=== PATIENT | male | born 1965 ===

== ENCOUNTER 2019-03-11 06:41 | Day surgery (SDC) | payer BC ==
[~2019-03-11] VITALS: Ht 180.3 cm; Wt 113.9 kg
[2019-03-11] MEDS ORDERED: YONSA125 MG (07:21)
[2019-03-11] MEDS ORDERED: LISI20 (07:22)
[2019-03-11] MEDS ORDERED: CALCIUM CIT 311 EACH (07:23)
[2019-03-11] MEDS ORDERED: Norco 10-325 T1 EACH (07:23)
[2019-03-11] MEDS ORDERED: PRED5 (07:23)
[2019-03-11] MEDS ORDERED: CYCL10 (07:24)
== END 2019-03-11 09:16 | disposition home or self-care (01) ==
LOC: ORSCSDS 06:41
PROVIDERS: Surgery
PROC: 0DBP8ZX Excision of Rectum, Via Natural or Artificial Opening Endoscopic, Diagnostic (ICD-10-PCS; principal; 2019-03-11 08:00)
PROC: 0DBM8ZX Excision of Descending Colon, Via Natural or Artificial Opening Endoscopic, Diagnostic (ICD-10-PCS; principal; 2019-03-11 08:00)
PROC: 3E0H8GC Introduction of Other Therapeutic Substance into Lower GI, Via Natural or Artificial Opening Endoscopic (ICD-10-PCS; principal; 2019-03-11 08:00)
PROC: 0DBL8ZX Excision of Transverse Colon, Via Natural or Artificial Opening Endoscopic, Diagnostic (ICD-10-PCS; principal; 2019-03-11 08:00)
DX: R19.5 Other fecal abnormalities (principal); C18.6 Malignant neoplasm of descending colon; D12.8 Benign neoplasm of rectum; D12.3 Benign neoplasm of transverse colon; I10 Essential (primary) hypertension; F17.210 Nicotine dependence, cigarettes, uncomplicated; J43.9 Emphysema, unspecified; Z79.899 Other long term (current) drug therapy
CPT/HCPCS: 88305; J2405; J2704; J7120

== ENCOUNTER 2019-10-02 08:47 | Day surgery (SDC) | payer BC ==
[~2019-10-02] VITALS: Ht 180.3 cm; Wt 116.3 kg
[~2019-10-02 08:47] MED LIST: CALCIUM CIT 311 EACH; CYCL10; LISI20; Norco 10-325 T1 EACH; PRED5; YONSA125 MG
[2019-10-02] MEDS ORDERED: YONSA125 MG (08:57)
[2019-10-02] MEDS ORDERED: VENL25 (08:59)
[2019-10-02] MEDS ORDERED: XGEVA120 MG/1.1 (09:00)
== END 2019-10-02 10:13 | disposition home or self-care (01) ==
LOC: ORSCSDS 08:47
PROVIDERS: Surgery
PROC: 0DJD8ZZ Inspection of Lower Intestinal Tract, Via Natural or Artificial Opening Endoscopic (ICD-10-PCS; principal; 2019-10-02 09:45)
DX: Z85.038 Personal history of other malignant neoplasm of large intestine (principal); I10 Essential (primary) hypertension; Z85.46 Personal history of malignant neoplasm of prostate; Z79.899 Other long term (current) drug therapy
CPT/HCPCS: J2704; J7120

== ENCOUNTER 2021-10-12 01:27 | Day surgery (SDC) | payer MEDICARE ==
[~2021-10-12 01:27] MED LIST changes: +VENL25; +XGEVA120 MG/1.1
== END 2021-10-12 10:20 | disposition home or self-care (01) ==
LOC: ATC 01:27
DX: Z45.2 Encounter for adjustment and management of vascular access device (principal); C61 Malignant neoplasm of prostate; I10 Essential (primary) hypertension; C79.51 Secondary malignant neoplasm of bone; G43.909 Migraine, unspecified, not intractable, without status migrainosus
CPT/HCPCS: 96523; J1642

== ENCOUNTER 2021-10-19 01:50 | Day surgery (SDC) | payer MEDICARE | END 2021-10-19 11:18 | disposition home or self-care (01) | LOC: ATC 01:50 | DX: Z45.2 Encounter for adjustment and management of vascular access device (principal); C61 Malignant neoplasm of prostate | CPT/HCPCS: 96523; J1642 ==

== ENCOUNTER 2023-04-25 07:38 | Emergency (ER) | payer OTHER ==
[~2023-04-25] VITALS: Ht 177.8 cm; Wt 126.1 kg
[2023-04-25] MEDS ORDERED: Ondansetron HCl 2 MG / ML 2ML Vial IV ONE (08:00)
[2023-04-25] MEDS ORDERED: Morphine Sulfate 4 MG/1 ML Injection IV ONE (08:00)
[2023-04-25 08:39] LABS: BASOPHILS ABSOLUTE AUTO 0.06 K/mm3 (0.00-0.23); BASOPHILS PERCENT AUTO 1 % (0-2); EOSINOPHILS PERCENT AUTO 2 % (0-6); Hematocrit 38.5 % (37.0-53.0); Hemoglobin 13.4 g/dL (13.5-17.5); IMMATURE GRAN ABSOLUTE AUTO 0.09 K/mm3 (0.00-0.10); IMMATURE GRAN PERCENT AUTO 1 % (0-1); LYMPHOCYTES ABSOLUTE AUTO 1.18 K/mm3 (0.84-5.20); LYMPHOCYTES PERCENT AUTO 13 % (21-46); MONOCYTES ABSOLUTE AUTO 0.66 K/mm3 (0.16-1.47); MONOCYTES PERCENT AUTO 7 % (4-13); Mean Corpuscular HGB 29.5 pg (26.0-34.0); Mean Corpuscular HGB Conc 34.8 g/dL (31.5-36.5); Mean Corpuscular Volume 85 fL (80-100); Mean Platelet Volume 9.1 fL (9.1-12.4); NEUTROPHILS ABSOLUTE AUTO 7.02 K/mm3 (1.96-9.15); NEUTROPHILS PERCENT AUTO 76 % (41-73); Platelet Count 297 K/mm3 (150-400); RDW Coefficient Variation 13.2 % (11.7-14.2); RDW Standard Deviation 40.9 fL (35.1-46.3); Red Blood Cell Count 4.54 M/mm3 (4.30-5.90); White Blood Cell Count 9.21 K/mm3 (4.00-11.30)
[2023-04-25 08:56] LABS: Albumin/Globulin Ratio 0.8 (0.8-1.8); Bilirubin, Total 0.5 mg/dL (0.1-1.0); Bun/Creatinine Ratio 11.4 (12.0-20.0); Calcium, Blood 9.4 mg/dL (8.5-10.1); Creatinine, Blood 0.79 mg/dL (0.60-1.20); Globulin, Blood 3.6 g/dL (2.2-4.0); Potassium, Blood 2.8 mmol/L (3.5-5.5); Total Protein, Blood 6.6 g/dL (6.4-8.2)
[2023-04-25 09:17] VITALS: BP 195/103
[2023-04-25] MEDS ORDERED: MORP15ER PO (10:00)
[2023-04-25] MEDS ORDERED: DOC250 PO (10:00)
[2023-04-25] MEDS ORDERED: NARCAN4 M1 (10:00)
[2023-04-25] MEDS ORDERED: POTA10T PO (10:11)
== END 2023-04-25 10:33 | disposition home or self-care (01) ==
LOC: ER 07:38
PROVIDERS: Emergency Medicine
DX: M84.48XA Pathological fracture, other site, initial encounter for fracture (principal); E87.6 Hypokalemia; I10 Essential (primary) hypertension; C61 Malignant neoplasm of prostate; C79.51 Secondary malignant neoplasm of bone; F17.200 Nicotine dependence, unspecified, uncomplicated; Z79.52 Long term (current) use of systemic steroids; Z79.899 Other long term (current) drug therapy; Z88.8 Allergy status to other drugs, medicaments and biological substances; Z91.030 Bee allergy status
CPT/HCPCS: 71260; 80053; 84484; 85025; 93005; 93010; 96374; 96375; 99285-25; J2270; J2405; Q9967

== ENCOUNTER 2023-09-18 13:06 | Emergency (ER) | payer OTHER ==
[~2023-09-18] VITALS: Ht 177.8 cm; Wt 90.7 kg
[~2023-09-18 13:06] MED LIST changes: +DOC250 PO; +MORP15ER PO; +NARCAN4 M1; +POTA10T PO
[2023-09-18 14:19] LABS: BASOPHILS ABSOLUTE AUTO 0.02 K/mm3 (0.00-0.23); BASOPHILS PERCENT AUTO 1 % (0-2); EOSINOPHILS ABSOLUTE AUTO 0.01 K/mm3 (0.00-0.68); EOSINOPHILS PERCENT AUTO 0 % (0-6); Hematocrit 28.6 % (37.0-53.0); Hemoglobin 9.3 g/dL (13.5-17.5); IMMATURE GRAN ABSOLUTE AUTO 0.19 K/mm3 (0.00-0.10); IMMATURE GRAN PERCENT AUTO 5 % (0-1); LYMPHOCYTES ABSOLUTE AUTO 0.39 K/mm3 (0.84-5.20); LYMPHOCYTES PERCENT AUTO 9 % (21-46); MONOCYTES ABSOLUTE AUTO 0.25 K/mm3 (0.16-1.47); MONOCYTES PERCENT AUTO 6 % (4-13); Mean Corpuscular HGB 30.3 pg (26.0-34.0); Mean Corpuscular HGB Conc 32.5 g/dL (31.5-36.5); Mean Corpuscular Volume 93 fL (80-100); Mean Platelet Volume 9.8 fL (9.1-12.4); NEUTROPHILS ABSOLUTE AUTO 3.27 K/mm3 (1.96-9.15); NEUTROPHILS PERCENT AUTO 79 % (41-73); NRBC ABSOLUTE 0.09 K/mm3 (0.00-0.02); NRBC Auto 2.2 /100 WBC (0.0-0.2); Platelet Count 164 K/mm3 (150-400); RDW Coefficient Variation 19.2 % (11.7-14.2); RDW Standard Deviation 64.6 fL (35.1-46.3); Red Blood Cell Count 3.07 M/mm3 (4.30-5.90); White Blood Cell Count 4.13 K/mm3 (4.00-11.30)
[2023-09-18 14:37] LABS: Albumin, Blood 2.8 g/dL (3.4-5.0); Albumin/Globulin Ratio 0.7 (0.8-1.8); Bilirubin, Total 0.6 mg/dL (0.1-1.0); Bun/Creatinine Ratio 16.7 (12.0-20.0); Calcium, Blood 9.8 mg/dL (8.5-10.1); Creatinine, Blood 0.66 mg/dL (0.60-1.20); Globulin, Blood 4.1 g/dL (2.2-4.0); Potassium, Blood 2.6 mmol/L (3.5-5.5); Total Protein, Blood 6.9 g/dL (6.4-8.2)
[2023-09-18 16:38] LABS: Source, Urine Clean Catch
[2023-09-18 16:52] LABS: Appearance, Urine Clear (Clear); Bilirubin, Urine Neg (Neg); Blood, Urine 1+ (Neg); Color, Urine Yellow (P-Yellow); Glucose Qualitative, Urine Neg (Neg); Ketones, Urine Neg (Neg); Leukocyte Esterase, Urine Neg (Neg); Nitrite, Urine Neg (Neg); Protein, Urine Neg (Neg); Urobilinogen, Urine NORM (Normal)
[2023-09-18 17:08] LABS: Bacteria Mod /hpf; Squamous Epithelial Cells Rare /hpf (Few); White Blood Cells, Urine 0-2 /hpf (0-5)
[2023-09-18] MEDS ORDERED: Milk 150ML/Molasses 150ML (300ML Total) PR ONE (17:35)
[2023-09-18] MEDS ORDERED: Potassium Chloride 20 MEQ TabCR PO ONE (18:20)
[2023-09-18] MEDS ORDERED: MIRALAX17 GM PO (18:25)
[2023-09-18] MEDS ORDERED: KLOR-CON 1010 ME1 PO (18:25)
[2023-09-18 18:35] VITALS: BP 129/98
== END 2023-09-18 18:37 | disposition home or self-care (01) ==
LOC: ER 13:06
PROVIDERS: Physician Assistant
DX: K59.00 Constipation, unspecified (principal); E87.6 Hypokalemia; I10 Essential (primary) hypertension; F17.200 Nicotine dependence, unspecified, uncomplicated; Z79.52 Long term (current) use of systemic steroids; Z79.899 Other long term (current) drug therapy; Z91.030 Bee allergy status
CPT/HCPCS: 74177; 80053; 81001; 83690; 85025; 87086; 93005; 93010; 99284-25; A9270; Q9967

== ENCOUNTER 2023-11-13 17:46 | Inpatient (IN) | payer OTHER ==
[~2023-11-13] VITALS: Ht 165.1 cm; Wt 73.8 kg
[~2023-11-13 17:46] MED LIST changes: +KLOR-CON 1010 ME1 PO; -LISI20; +LISI20 PO; +MIRALAX17 GM PO; -PRED5; +PRED5 PO; +YONSA125 MG PO
[2023-11-13 18:16] LABS: Source, Urine Straight Cath
[2023-11-13 18:22] LABS: Hemoglobin 6.4 g/dL (13.5-17.5); Mean Corpuscular HGB 33.2 pg (26.0-34.0); Mean Corpuscular HGB Conc 30.5 g/dL (31.5-36.5); Mean Corpuscular Volume 109 fL (80-100); Mean Platelet Volume 10.8 fL (9.1-12.4); NRBC ABSOLUTE 0.51 K/mm3 (0.00-0.02); NRBC Auto 9.4 /100 WBC (0.0-0.2); Platelet Count 60 K/mm3 (150-400); RDW Coefficient Variation 19.3 % (11.7-14.2); RDW Standard Deviation 74.4 fL (35.1-46.3); Red Blood Cell Count 1.93 M/mm3 (4.30-5.90); White Blood Cell Count 5.43 K/mm3 (4.00-11.30)
[2023-11-13 18:24] LABS: Appearance, Urine Cloudy (Clear); Bilirubin, Urine Neg (Neg); Blood, Urine 1+ (Neg); Color, Urine Yellow (P-Yellow); Glucose Qualitative, Urine Neg (Neg); Ketones, Urine Neg (Neg); Leukocyte Esterase, Urine Neg (Neg); Nitrite, Urine Neg (Neg); Protein, Urine 2+ (Neg); Urobilinogen, Urine 2+ (Normal)
[2023-11-13 18:37] LABS: Albumin, Blood 2.6 g/dL (3.4-5.0); Albumin/Globulin Ratio 0.7 (0.8-1.8); Bilirubin, Total 0.8 mg/dL (0.1-1.0); Calcium, Blood 9.4 mg/dL (8.5-10.1); Creatinine, Blood 0.69 mg/dL (0.60-1.20); Globulin, Blood 3.7 g/dL (2.2-4.0); Potassium, Blood 2.7 mmol/L (3.5-5.5); Total Protein, Blood 6.3 g/dL (6.4-8.2)
[2023-11-13 18:39] LABS: Red Blood Cells, Urine 0-2 /hpf (0-2); Squamous Epithelial Cells Rare /hpf (Few); White Blood Cells, Urine 0-2 /hpf (0-5)
[2023-11-13 18:40] LABS: Amorphous Heavy (0-Heavy)
[2023-11-13 18:41] LABS: Other Crystals Many /hpf
[2023-11-13 18:42] LABS: Bacteria Many /hpf; Mucus Light (0-Heavy); Uric Acid Crystals Rare /hpf
[2023-11-13 19:05] LABS: BAND PERCENT MAN 18 % (0-8); BASOPHILS PERCENT MAN 0 % (0-2); EOSINOPHILS PERCENT MAN 0 % (0-6); LYMPHOCYTES ABSOLUTE MAN 0.32 K/mm3 (0.84-5.20); LYMPHOCYTES PERCENT MAN 6 % (21-46); METAMYELOCYTE ABSOLUTE MAN 0.05 K/mm3 (0.00-0.00); METAMYELOCYTE PERCENT MAN 1 % (0-0); MONOCYTES ABSOLUTE MAN 0.32 K/mm3 (0.16-1.47); MONOCYTES PERCENT MAN 6 % (4-13); MYELOCYTE ABSOLUTE MAN 0.16 K/mm3 (0.00-0.00); MYELOCYTE PERCENT MAN 3 % (0-0); NEUTROPHILS ABSOLUTE MAN 4.56 K/mm3 (1.96-9.15); SEG NEUTROPHILS PERCENT MAN 66 % (41-73); TOTAL CELLS COUNTED 100
[2023-11-13] MEDS ORDERED: NS KCL 40 mEq 1,000 ML IV SCH (21:00)
[2023-11-13] MEDS ORDERED: CefTRIAXone Sodium 1,000 MG in NS 100 ML IV ONE (21:00)
[2023-11-13] MEDS ORDERED: Potassium Chloride 20 MEQ/15 ML UDC PO ONE (21:00)
[2023-11-13] MEDS ORDERED: Pantoprazole Sodium 40 MG Injection IV ONE (21:25)
[2023-11-13] MEDS ORDERED: CefTRIAXone 1000 MG Vial ONE (22:17)
[2023-11-13] MEDS ORDERED: NS 100 ML IV ONE (22:17)
[2023-11-13] MEDS ORDERED: NS 1,000 ML IV ONE (22:44)
[2023-11-14 01:05] LABS: Base Excess Venous 7.8 mmol/L; Bicarbonate Venous 30.9 mmol/L (24.0-30.0); PCO2 Venous 54 mmHg (38-42); pH Blood Venous 7.39 (7.34-7.37)
[2023-11-14] MEDS ORDERED: Acetaminophen 325 MG TABLET PO PRN (07:25)
[2023-11-14] MEDS ORDERED: Potassium Chloride 40 MEQ in NS 250 ML IV ONE (07:30)
[2023-11-14] MEDS ORDERED: OxyCODONE HCL 5 MG TAB PO PRN (07:30)
[2023-11-14] MEDS ORDERED: Morphine Sulfate 4 MG/1 ML Injection IV PRN (07:30)
[2023-11-14] MEDS ORDERED: NS 1,000 ML IV ONE (07:30)
[2023-11-14 08:10] LABS: Albumin, Blood 2.1 g/dL (3.4-5.0); Albumin/Globulin Ratio 0.7 (0.8-1.8); Bilirubin, Total 0.7 mg/dL (0.1-1.0); Bun/Creatinine Ratio 26.8 (12.0-20.0); Calcium, Blood 8.4 mg/dL (8.5-10.1); Creatinine, Blood 0.71 mg/dL (0.60-1.20); Potassium, Blood 3.4 mmol/L (3.5-5.5); Total Protein, Blood 5.1 g/dL (6.4-8.2)
[2023-11-14 08:11] LABS: Hematocrit 22.9 % (37.0-53.0); Hemoglobin 7.4 g/dL (13.5-17.5); Mean Corpuscular HGB 32.5 pg (26.0-34.0); Mean Corpuscular HGB Conc 32.3 g/dL (31.5-36.5); Mean Corpuscular Volume 100 fL (80-100); Mean Platelet Volume 10.2 fL (9.1-12.4); NRBC ABSOLUTE 0.35 K/mm3 (0.00-0.02); NRBC Auto 9.2 /100 WBC (0.0-0.2); RDW Coefficient Variation 21.8 % (11.7-14.2); RDW Standard Deviation 76.4 fL (35.1-46.3); Red Blood Cell Count 2.28 M/mm3 (4.30-5.90)
[2023-11-14 08:14] LABS: Platelet Count 37 K/mm3 (150-400)
[2023-11-14 08:46] LABS: BAND PERCENT MAN 4 % (0-8); BASOPHILS PERCENT MAN 0 % (0-2); EOSINOPHILS ABSOLUTE MAN 0.03 K/mm3 (0.00-0.68); EOSINOPHILS PERCENT MAN 1 % (0-6); LYMPHOCYTES ABSOLUTE MAN 0.07 K/mm3 (0.84-5.20); LYMPHOCYTES PERCENT MAN 2 % (21-46); METAMYELOCYTE ABSOLUTE MAN 0.03 K/mm3 (0.00-0.00); METAMYELOCYTE PERCENT MAN 1 % (0-0); MONOCYTES ABSOLUTE MAN 0.07 K/mm3 (0.16-1.47); MONOCYTES PERCENT MAN 2 % (4-13); NEUTROPHILS ABSOLUTE MAN 3.57 K/mm3 (1.96-9.15); SEG NEUTROPHILS PERCENT MAN 90 % (41-73); TOTAL CELLS COUNTED 100
--- NOTE | 2023-11-14 12:43 | NUR ---
GOALS OF CARE CONVERSATION ZANE IS A/O TO NAME, , TOWN, NAME OF HOSPITAL AND FAMILY. HE THINKS HE IS HERE FOR A FALL. ZANE IDENTIFIES HIS STEP-DTR, TRISTEN AT BEDSIDE. HIS LIFE PARTNER IS [facility] IN [facility]. BARBARAN PULLED LIFE PARTNER AND STEP DAUGHTER INTO ROOM FOR GOALS CONVERSATION WITH PATIENT. 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 WAS RECEIVING RADIATION IN [place] WITH DR. TOMI DING AT [facility]. PT COMPLETED 5 ROUNDS OF RADIATION. LAST TREATMENT IN SEPTEMBER OF 2023. ALDAIR REPORTS PT'S BLOOD PRESSURE WAS TOO LOW, HR TOO HIGH FOR FINAL RADIATION SESSION. FOR THE PAST 2 WEEKS, PT HAS HAD ALTERED MENTATION AND ONLY EATING BITES AND SIPS. THESE CHANGES BECAME NOTICEABLE WHEN HE WAS STARTED ON FENTANYL PATCHES. HOWEVER, THE FENTANYL PATCHES HAVE BEEN EFFECTIVE FOR PAIN. PT BEGING ADMITTED TO PCU FOR EVALUATION, PAIN CONTROL AND FURTHER GOALS OF CARE CONVERSATION. BARBARAN GAVE FAMILY THE BOOKLET, "CONSIDERING COMFORT CARE." LIFE PARTNER ALDAIR STORY [phone] STEPDAUGHTER TRISTEN STORY [phone] BROTHER BLAINE THOMAS ALSO OK FOR SHARING INFORMATION. PT IS ESTRANGED FROM HIS ADULT CHILDREN.
[2023-11-14 13:20] VITALS: BP 118/87
--- NOTE | 2023-11-14 13:30 | NUR ---
ADMISSION ASSESSMENT: Pt brought to the room via gurney. Pt is oreinted to self and family. Knows he is at the hospital but doesn't know why. Disoriented to time, date, sitation. Was not able to state year, president or situation. HR reg, LS diminished. BT positive. Pulses palp. Pt denies pain at this time and looks comfortable. Fentynal patch noticed on R shoulder. Petechia noted over arms and abd. Bruising also scattered throughout. Small pressure sore to L side buttock. Pictures taken and placed in chart, will inform physician of findings. Pt and family oriented to room, situation, surroundings and plan of care. Family asks questions appropriately. Bed alarm in place. Will continue to monitor. call light in reach.
[2023-11-14 14:09] LABS: BASOPHILS ABSOLUTE AUTO 0.01 K/mm3 (0.00-0.23); BASOPHILS PERCENT AUTO 0 % (0-2); EOSINOPHILS ABSOLUTE AUTO 0.02 K/mm3 (0.00-0.68); EOSINOPHILS PERCENT AUTO 0 % (0-6); Hematocrit 24.6 % (37.0-53.0); Hemoglobin 7.7 g/dL (13.5-17.5); IMMATURE GRAN ABSOLUTE AUTO 0.23 K/mm3 (0.00-0.10); IMMATURE GRAN PERCENT AUTO 4 % (0-1); LYMPHOCYTES PERCENT AUTO 2 % (21-46); MONOCYTES ABSOLUTE AUTO 0.22 K/mm3 (0.16-1.47); MONOCYTES PERCENT AUTO 4 % (4-13); Mean Corpuscular HGB 32.5 pg (26.0-34.0); Mean Corpuscular HGB Conc 31.3 g/dL (31.5-36.5); Mean Corpuscular Volume 104 fL (80-100); NEUTROPHILS ABSOLUTE AUTO 4.96 K/mm3 (1.96-9.15); NEUTROPHILS PERCENT AUTO 89 % (41-73); NRBC ABSOLUTE 0.36 K/mm3 (0.00-0.02); NRBC Auto 6.5 /100 WBC (0.0-0.2); RDW Coefficient Variation 22.5 % (11.7-14.2); RDW Standard Deviation 82.2 fL (35.1-46.3); Red Blood Cell Count 2.37 M/mm3 (4.30-5.90); White Blood Cell Count 5.54 K/mm3 (4.00-11.30)
[2023-11-14 14:13] LABS: Platelet Count 38 K/mm3 (150-400)
[2023-11-14] MEDS ORDERED: FENTANYL1 EA12 TOP (14:38)
[2023-11-14] MEDS ORDERED: METO25ER PO (14:39)
[2023-11-14] MEDS ORDERED: Methocarbamol500 MG PO (14:43)
[2023-11-14] MEDS ORDERED: ABIRATERONE AC250 MG PO (14:45)
[2023-11-14] MEDS ORDERED: VENL75ER PO (14:47)
[2023-11-14] MEDS ORDERED: LYNPARZA150 MG PO (14:47)
[2023-11-14] MEDS ORDERED: GABA300 PO (14:49)
[2023-11-14] MEDS ORDERED: ONDA4 PO (14:51)
[2023-11-14] MEDS ORDERED: HYDROCODONE-AC1 EA19 PO (14:53)
[2023-11-14] MEDS ORDERED: Azithromycin 500 MG in NS 250 ML IV SCH (15:28)
[2023-11-14] MEDS ORDERED: CefTRIAXone Sodium 1,000 MG in NS 100 ML IV SCH (15:28)
[2023-11-14] MEDS ORDERED: Azithromycin 500 MG VIAL ONE (15:31)
[2023-11-14] MEDS ORDERED: CefTRIAXone 1000 MG Vial ONE (15:31)
[2023-11-14] MEDS ORDERED: NS 100 ML IV ONE (15:31)
[2023-11-14] MEDS ORDERED: NS 250 ML IV ONE (15:32)
[2023-11-14] MEDS ORDERED: Dextrose 5% 1,000 ML IV SCH (16:50)
--- NOTE | 2023-11-14 17:14 | NUR ---
Pt laying in bed, family at bedside including pt's brother who is next of kin. The patient has had increasing confusion over the past 2 weeks, along with eating and drinking very little. He isn't always able to make his wants and needs known. However, this evening he is clear in stating, "I want to go home," and his s/o Antra and brother agree, and state they both "want what he wants." They no longer wish for an oncology consult, instead asking to have hospice set up as soon as possible, with [facility] as their first choice. Laly and I spoke with hospice together via t/c to make arrangements for discharge tomorrow with hospice. Both pt's brother and pt's s/o request making the patient comfortable. Comfort care reviewed, and they are all in agreement, no oncology, just comfort care now, and home with hospice. Dr. Lea notified, gives telephone order for cancel oncology, begin comfort care and home with hospice. I checked again with family and s/o Laly who stated, "I don't want to make him suffer anymore. He never wanted to treat it in the first place, but he did it for me. I'm going to do what he wants now. Please make him comfortable and cancel the oncologist for tomorrow." Pt's brother also in agreement.
[2023-11-14] MEDS ORDERED: LORazepam 1 MG Tab PO PRN (17:45)
[2023-11-14] MEDS ORDERED: Atropine Sulfate 1% Opth Soln 2ML BTL SL PRN (17:45)
[2023-11-14] MEDS ORDERED: Scopolamine Hydrobromide Patch TOP PRN (17:45)
[2023-11-14] MEDS ORDERED: Morphine Sulfate 20 MG/1ML 1 ML Oral Syringe SL PRN (17:45)
--- NOTE | 2023-11-14 19:33 | NUR ---
shift summary: Pt resting in bed with multiple family members in room. Pt changed to comfort care around 1800. DNR band in place. Appears comfortable at this time. Pt did have some agitation and paranoa earlier. Pt would state, "why are you trying to kill me?" and then attempt to pull IV's out as well as pull off oxygen. When family in room, Pt's agitation improves. At least one family member plans to stay the night with patient with plan to discharge on hospice tomorrow. REport given to night RN.
--- NOTE | 2023-11-15 05:11 | NUR ---
1915 Assumed care of pt, bedside report completed. Shift plan of care reviewed with pt and family at bedside, all questions answered. Comfort care status/protocol reviewed with family, enduring comfort of pt is primary driver courier of care. Pt medicated for pain x 1 this shift using FLACC scale to evaluate need and effect of Roxinol 10mg SL. After majority of family left, son stayed at bedside overnight, pt appears restful and sleeping off and on. Oriented to self and people/family members only though can be redirected at times. Pt removed O2 earlier in shift and would not allow staff or family to replace. Later in shift when pt more sleepy, pt allowing this RN to replace O2 2-4 lpm via NC. Pt fussy with O2 Sat cable so have disconnected at this time, will monitor and replace as pt allows. Currently pt able to tolerate tele leads, will leave on tele as pt allows. Please see comfort care assessment for additional details. No further complaints or concerns at this time, will continue to monitor. NC.
--- NOTE | 2023-11-15 12:27 | NUR ---
POLST filled out, CM obtaining physician signature.
--- NOTE | 2023-11-15 12:42 | NUR ---
MORNING ASSESSMENT THE PT IS ALERT AND ORIENTED TO SELF, PERSON, AND LOCATION. HE HAS DENIED ANY PAIN OR DYSPNEA THIS MORNING. HE WILL BE DISCHARGING HOME WITH HOSPICE AROUND 1400. THE PT'S SON AND SISTER N LAW HAVE VISISTED THE PT AT THE BEDSIDE. CASE MANAGEMENT HAS COORDINATED HOSPICE SET UP WITH THE PT'S LIFE PARTNER AND WITH HOSPICE. AN INDWELLING WOMACK WAS INSERTED FOR END OF LIFE MEASURES. HE WAS A DIFFICULT INSERT D/T ENLARGED PROSTATE. WOMACK IS PATENT AND DRAINING TO GRAVITY. HE IS A Q2 REPOSITION IF THE PT IS NOT REFUSING. HE HAS REFUSED SOME CARE TODAY SUCH BATHING, SOME TURNS, ORAL CARE, AND DRESSING. AWW NOTES FOR ANY UPDATES.
== END 2023-11-15 13:58 | disposition hospice, home (50) | DRG 189 ==
LOC: ER 17:46 → ERHOLD 17:47 → PCU 11-14 13:15
PROVIDERS: Emergency Medicine; Student in an Organized Health Care Education/Training Program; ADMIT Family Medicine
PROC: 30233N1 Transfusion of Nonautologous Red Blood Cells into Peripheral Vein, Percutaneous Approach (ICD-10-PCS; principal; 2023-11-13)
PROC: 3E03329 Introduction of Other Anti-infective into Peripheral Vein, Percutaneous Approach (ICD-10-PCS; 2023-11-13)
DX: J96.01 Acute respiratory failure with hypoxia (principal); A41.9 Sepsis, unspecified organism; G93.41 Metabolic encephalopathy; J18.9 Pneumonia, unspecified organism; R65.20 Severe sepsis without septic shock; E87.0 Hyperosmolality and hypernatremia; C79.51 Secondary malignant neoplasm of bone; J96.02 Acute respiratory failure with hypercapnia; E87.6 Hypokalemia; D69.6 Thrombocytopenia, unspecified; Z66 Do not resuscitate; Z51.5 Encounter for palliative care; E86.0 Dehydration; D64.9 Anemia, unspecified; L89.152 Pressure ulcer of sacral region, stage 2; C61 Malignant neoplasm of prostate; I10 Essential (primary) hypertension; Z90.49 Acquired absence of other specified parts of digestive tract; Z98.52 Vasectomy status; Z98.890 Other specified postprocedural states; F17.210 Nicotine dependence, cigarettes, uncomplicated; Z91.030 Bee allergy status; Z88.8 Allergy status to other drugs, medicaments and biological substances; Z91.048 Other nonmedicinal substance allergy status; Z79.891 Long term (current) use of opiate analgesic; Z79.811 Long term (current) use of aromatase inhibitors; Z79.899 Other long term (current) drug therapy
CPT/HCPCS: 36415; 36430; 51701; 70450; 71260; 80053; 81001; 82272; 82803; 83605; 84145; 85025; 86850; 86900; 86901; 86923; 87040; 87086; 93005; 93010; 94760; 96365-59; 96366; 96367; 96375-59; 96376-59; 99285-25; A9270; G0378; J0456; J0696; J2270; J2470; J3480; J7030; J7050; P9016; Q9967